=== PATIENT | female | born 1940 | race Caucasian/White ===

== ENCOUNTER 2023-02-19 14:44 | Observation (INO) | payer OTHER, MEDICARE ==
[2023-02-19 15:58] LABS: Absolute Lymphocytes (CBC) 1.6 K/uL (0.7-4.9); Lymphocytes % 19.9 % (15.3-44.8); MCV 72.5 fL (80-100); MPV 7.5 fL (7.6-11.3); RBC Red Blood Cell Count 4.27 M/uL (3.86-4.86)
[2023-02-19] MEDS ORDERED: NA CHLORIDE 0.9% 1,000 ML ONE (16:03)
[2023-02-19 16:26] LABS: Albumin 3.8 g/dL (3.4-5.0); Bilirubin Total 0.4 mg/dL (0.2-1.0); Potassium 3.9 mEq/L (3.5-5.1); Protein, Total 7.4 g/dL (6.4-8.2); Troponin High Sensitivity 6.5 pg/mL (<58.9)
[2023-02-19 16:28] LABS: Thyroid Stimulating Hormone 5.39 uIU/mL (0.358-3.740)
[2023-02-19] MEDS ORDERED: methocarbamoL 500 MG TAB ONE (16:29)
--- NOTE | 2023-02-19 17:17 | RAD REPORT ---
EXAM DESCRIPTION: CT - Head Brain Wo Cont - 02/19/2023 5:11 pm CLINICAL HISTORY: WEAKNESS Headache, drowsiness COMPARISON: No comparisons TECHNIQUE: All CT scans are performed using dose optimization technique as appropriate and may inclu de automated exposure control or mA/KV adjustment according to patient size. FINDINGS: No intracranial hemorrhage, hydrocephalus or extra-axial fluid collection.Mild generalized brain atrophy.No areas of brain edema or evidence of midline shift. The paranasal sinuses and mastoids are clear. The calvarium is intact. IMPRESSION: No acute intracranial abnormality.
--- NOTE | 2023-02-19 17:20 | RAD REPORT ---
EXAM DESCRIPTION: CT - Angio Aorta For Dissection - 02/19/2023 5:11 pm CLINICAL HISTORY: Chest pain radiating to the back. AAA back pain COMPARISON: No comparisons TECHNIQUE: CT angiography of the aorta was performed with MIPs. All CT scans are performed using dose optimization technique as appropriate and may include automated exposure control or mA/KV adjustment according to patient size. FINDINGS: A left aortic arch is present with normal branching pattern of the great vessels.No acute aortic finding is seen such as aneurysm, penetrating ulcer or dissection. Abdominal aortic endograft is present. The celiac axis, SMA, JANICE and renal arteries are patent. No evidence of pulmonary embolism. Diffuse COPD. The liver demonstrates no focal mass or biliary dilatation.The spleen, pancreas, adrenal glands and k idneys are within normal limits for arterial phase imaging. No bowel obstruction, free fluid or abscess.No pathologic enlarged lymphadenopathy identified. Moderate lumbar degenerative changes. IMPRESSION: No acute aortic finding is demonstrated. Abdominal aortic endograft is in place without unexpected finding.
[2023-02-19] MEDS ORDERED: FENTANYL CITR 100 MCG/2 ML ONE ×2 (17:52→20:00)
[2023-02-19 18:04] LABS: Specific Gravity 1.018 (1.005-1.030); Urine Bacteria <20 /HPF (<20); Urine Bilirubin NEGATIVE (Negative); Urine Blood Negative (Negative); Urine Clarity Clear (Clear); Urine Color Light-Yellow (Yellow); Urine Glucose NEGATIVE (Negative); Urine Protein NEGATIVE (Negative); Urine RBC <5 /HPF (None Seen); Urine Urobilinogen Normal (Normal); Urine pH 7.5 (5.0-7.0)
--- NOTE | 2023-02-19 18:25 | EDPHYS ---
Physician Documentation [facility] Name: Fariha Stevenson Age: 82 yrs Sex: Female : 1940 Arrival Date: 02/19/2023 Time: 14:44 Bed 8 Private MD: ED Physician Jaime Alonzo HPI: 02/19 16:18 This 82 yrs old Female presents to ER via Carried with complaints of Near Syncope. rt 16:18 Patient presents to the ED with a near syncopal event. The patient states that she had rt a brief episode where she was not able to move with her arms or her legs. She states that she felt dizzy at that time. The patient states that she has been able to move her arms legs little bit better but still not back to baseline. She does report she has been having back pain, described as a spasm in the past 2 weeks, still present today. She states muscle relaxers are not helping. The patient does have a history of a stented AAA as well as stent to carotid arteries. Denies other acute complaints at this time. Symptoms are moderate in severity, no other aggravating or alleviating factors.. Historical: - Allergies: 14:48 PENICILLINS; hb - Home Meds: 14:48 diclofenac oral [Active]; Baclofen Oral [Active]; gabapentin oral [Active]; hb atorvastatin oral [Active]; amlodipine 2.5 mg tablet daily [Active]; Dicyclomine Oral [Active]; - PMHx: 14:48 Hypertension; Vertigo; AAA; Carotid aneurysm; hb - Immunization history:: Adult Immunizations unknown. - Social history:: Smoking status: Patient denies any tobacco usage or history of. ROS: 16:20 Constitutional: Negative for fever, chills, and weight loss, Cardiovascular: Negative rt for chest pain, palpitations, and edema, Respiratory: Negative for shortness of breath, cough, wheezing, and pleuritic chest pain, Abdomen/GI: Negative for abdominal pain, nausea, vomiting, diarrhea, and constipation, MS/Extremity: Negative for injury and deformity, Psych: Negative for depression, anxiety, suicide ideation, homicidal ideation, and hallucinations. 16:20 Back: Positive for pain at rest, Negative for injury or acute deformity. 16:20 Neuro: Positive for near syncope, weakness. Exam: 16:20 Constitutional: This is a well developed, well nourished patient who is awake, alert, rt and in no acute distress. Head/Face: Normocephalic, atraumatic. Chest/axilla: Normal chest wall appearance and motion. Nontender with no deformity. No lesions are appreciated. Cardiovascular: Regular rate and rhythm with a normal S1 and S2. No gallops, murmurs, or rubs. Normal PMI, no JVD. No pulse deficits. Respiratory: Lungs have equal breath sounds bilaterally, clear to auscultation and percussion. No rales, rhonchi or wheezes noted. No increased work of breathing, no retractions or nasal flaring. Abdomen/GI: Soft, non-tender, with normal bowel sounds. No distension or tympany. No guarding or rebound. No evidence of tenderness throughout. Skin: Warm, dry with normal turgor. Normal color with no rashes, no lesions, and no evidence of cellulitis. MS/ Extremity: Pulses equal, no cyanosis. Neurovascular intact. Full, normal range of motion. Psych: Awake, alert, with orientation to person, place and time. Behavior, mood, and affect are within normal limits. 16:20 ECG was reviewed by the Attending Physician. 16:20 Neuro: global weakness noted, no lateralizing deficits. No sensory deficits, speech normal, cranial nerves II through intact.. Vital Signs: 14:46 BP 126 / 56; Pulse 63; Resp 16; Temp 98.3; Pulse Ox 100% on R/A; Weight 46.72 kg; hb Height 5 ft. 1 in. ; Pain 5/10; 15:30 BP 120 / 84; Pulse 63; Resp 18; Pulse Ox 98% on R/A; ko1 16:00 BP 141 / 68; Pulse 60; Resp 16; Pulse Ox 100% ; ko1 16:30 BP 134 / 57; Pulse 58; Resp 16; Pulse Ox 100% ; ko1 18:15 BP 152 / 74; Pulse 71; Resp 15; Pulse Ox 95% ; jl7 18:42 BP 146 / 58; Pulse 65; Resp 16; Pulse Ox 99% ; ko1 19:24 BP 136 / 64; Pulse 68; Resp 19; Pulse Ox 96% on R/A; kd3 20:20 BP 122 / 58; Pulse 56; Resp 18; Pulse Ox 94% on R/A; kd3 14:46 Body Mass Index 19.46 (46.72 kg, 154.94 cm) hb 14:46 Pain Scale: Adult hb MDM: 15:21 Patient medically screened. rt 19:13 Differential Diagnosis: CVA, AAA, electrolyte disturbance, sepsis. Data reviewed: vital rt signs, nurses notes, lab test result(s), EKG, radiologic studies. Consideration of Admission/Observation Patient was admitted/placed on observation. Management of patient was discussed with the following: Primary Care Provider: Ice aspirin administration, will admit patient for further evaluation.. I considered the following discharge prescriptions or medication management in the emergency department Medications were administered in the Emergency Department. See MAR. Independent interpretation of the following test(s) in the Emergency Department CT Scan: My interpretation is No hemorrhage seen on my interpretation of the CT scan images. Care significantly affected by the following chronic conditions: Hypertension, AAA. Counseling: I had a detailed discussion with the patient and/or guardian regarding: the historical points, exam findings, and any diagnostic results supporting the discharge/admit diagnosis, lab results, radiology results, the need for further work-up and treatment in the hospital. 02/19 15:38 Order name: CBC with Diff; Complete Time: 16:39 rt 02/19 15:38 Order name: CMP; Complete Time: 17:17 rt 02/19 15:38 Order name: Magnesium; Complete Time: 17:17 rt 02/19 15:38 Order name: TSH; Complete Time: 17:17 rt 02/19 15:38 Order name: UAM; Complete Time: 18:10 rt 02/19 15:38 Order name: Troponin High Sensitivity; Complete Time: 17:17 rt 02/19 15:38 Order name: CPK; Complete Time: 17:17 rt 02/19 16:30 Order name: T4 Free; Complete Time: 17:17 EDMS 02/19 15:38 Order name: CT Aorta for Dissection; Complete Time: 17:26 rt 02/19 15:38 Order name: CT Head Brain wo Cont; Complete Time: 17:26 rt 02/19 15:38 Order name: EKG; Complete Time: 15:38 rt 02/19 15:38 Order name: EKG - Nurse/Tech; Complete Time: 16:10 rt EC:20 Rate is 56 beats/min. Rhythm is regular, Sinus bradycardia with No ectopy. QRS [place] is rt Normal. [place] interval is normal. QRS interval is normal. QT interval is normal. No Q waves. Clinical impression: NSR w/ Non-specific ST/T Changes. Administered Medications: 16:10 Drug: NS 0.9% IV 1000 ml Route: IV; Rate: 1 bolus; Site: left antecubital; ko1 20:38 Follow up: IV Status: Completed infusion kd3 16:23 Drug: Methocarbamol PO 500 mg Route: PO; ko1 20:38 Follow up: Response: No adverse reaction kd3 17:06 CANCELLED (med unavailablee): Orphenadrine IM 60 mg IM once bp 17:59 Drug: fentaNYL (PF) IVP 50 mcg Route: IVP; Site: right antecubital; jl7 20:38 Follow up: Response: No adverse reaction kd3 19:56 Drug: fentaNYL (PF) IVP 50 mcg Route: IVP; Site: left antecubital; kd3 20:38 Follow up: Response: No adverse reaction kd3 Disposition Summary: 02/19/23 18:24 Hospitalization Ordered Hospitalization Status: Observation rt Provider: Ed Clemente rt Location: Telemetry/MedSurg (observation) rt Condition: Stable rt Problem: new rt Symptoms: have improved rt Bed/Room Type: Standard rt Room Assignment: 207(02/19/23 19:51) cg Diagnosis - Weakness rt Forms: - Medication Reconciliation Form rt - SBAR form rt Signatures: Dispatcher [employer] Cris Rivero RN RN Haylie Bonds RN RN Elizabeth Barclay RN RN jl7 Melissa Krishnamurthy RN RN kd3 Nikki Trotter RN RN ko1 Jaime Alonzo MD MD rt Bill Park RN bp Corrections: (The following items were deleted from the chart) 14:50 14:48 PMHx: Carotid aneurysn; hb hb 17:06 15:54 Orphenadrine IM 60 mg IM once ordered. rt bp 19:51 18:24 rt cg
--- NOTE | 2023-02-19 18:25 | ER ---
Nurse's Notes [facility] Name: Fariha Stevenson Age: 82 yrs Sex: Female : 1940 Arrival Date: 02/19/2023 Time: 14:44 Bed 8 Private MD: Diagnosis: Weakness Presentation: 02/19 14:46 Chief complaint: Near syncopal episode while walking to the bathroom this afternoon, hb followed by severe generalized weakness + loss of bowels x 1. Coronavirus screen: At this time, the client does not indicate any symptoms associated with coronavirus-19. Ebola Screen: No symptoms or risks identified at this time. Initial Sepsis Screen: Does the patient meet any 2 criteria? No. Patient's initial sepsis screen is negative. Does the patient have a suspected source of infection? No. Patient's initial sepsis screen is negative. Risk Assessment: Do you want to hurt yourself or someone else? Patient reports no desire to harm self or others. Onset of symptoms was February 19, 2023. 14:46 Method Of Arrival: Carried hb 14:46 Acuity: FELICITY 3 hb Historical: - Allergies: 14:48 PENICILLINS; hb - Home Meds: 14:48 diclofenac oral [Active]; Baclofen Oral [Active]; gabapentin oral [Active]; hb atorvastatin oral [Active]; amlodipine 2.5 mg tablet daily [Active]; Dicyclomine Oral [Active]; - PMHx: 14:48 Hypertension; Vertigo; AAA; Carotid aneurysm; hb - Immunization history:: Adult Immunizations unknown. - Social history:: Smoking status: Patient denies any tobacco usage or history of. Screenin:30 [facility] ED Fall Risk Assessment (Adult) History of falling in the last 3 months, ko1 including since admission Yes- single mechanical fall (1 pt) Confusion or Disorientation No (0 pts) Intoxicated or Sedated No (0 pts) Impaired Gait No (0 pts) Mobility Assist Device Used No (0 pt) Altered Elimination No (0 pt) Score/Fall Risk Level 0 - 2 = Low Risk Oriented to surroundings, Maintained a safe environment, Educated pt \T\ family on fall prevention, incl call for assistance when getting out of bed, Assessed \T\ reinforced patient's understanding of fall precautions, Provided non-skid footwear, Hourly rounding (assess needs \T\ fall precautionary measures) done, Used ambulatory aids as needed (educated on \T\ assisted with), Used gait belt as appropriate. Abuse screen: Denies threats or abuse. Denies injuries from another. Nutritional screening: On. Nutritional screening: No deficits noted. Tuberculosis screening: No symptoms or risk factors identified. Assessment: 16:00 General: Appears in no apparent distress. uncomfortable, Behavior is calm, cooperative, ko1 appropriate for age. Pain: Complains of pain in back. Neuro: Level of Consciousness is awake, alert, obeys commands, Oriented to person, place, time, situation, Appropriate for age Email Marketer are weak bilaterally Moves all extremities. Speech is normal, Facial symmetry appears normal, Reports a syncopal episode weakness. Cardiovascular: No deficits noted. Respiratory: No deficits noted. GI: No deficits noted. : No deficits noted. EENT: No deficits noted. Derm: No deficits noted. Musculoskeletal: Reports weakness in generalized. 17:55 Reassessment: Pt returned from restroom via wheelchair, urine sample provided, on jl7 attempting to stand up from wheelchair pt jerked and reported a back spasm. Pt reports medication has not helped and is requesting additional medication and another pillow. Dr. Melendez notified and ordered 50 mcg Fentanyl IVP. Pt provided with another pillow and medicated as ordered. 19:23 General: Appears in no apparent distress. uncomfortable, Behavior is calm, cooperative. kd3 Pain: Complains of pain in back. Neuro: Level of Consciousness is awake, alert, obeys commands, Oriented to person, place, time, situation, Email Marketer are weak bilaterally Moves all extremities. Cardiovascular: Patient's skin is warm and dry. Respiratory: Airway is patent Trachea midline Respiratory effort is even, unlabored, Respiratory pattern is regular, symmetrical. Vital Signs: 14:46 BP 126 / 56; Pulse 63; Resp 16; Temp 98.3; Pulse Ox 100% on R/A; Weight 46.72 kg; hb Height 5 ft. 1 in. ; Pain 5/10; 15:30 BP 120 / 84; Pulse 63; Resp 18; Pulse Ox 98% on R/A; ko1 16:00 BP 141 / 68; Pulse 60; Resp 16; Pulse Ox 100% ; ko1 16:30 BP 134 / 57; Pulse 58; Resp 16; Pulse Ox 100% ; ko1 18:15 BP 152 / 74; Pulse 71; Resp 15; Pulse Ox 95% ; jl7 18:42 BP 146 / 58; Pulse 65; Resp 16; Pulse Ox 99% ; ko1 19:24 BP 136 / 64; Pulse 68; Resp 19; Pulse Ox 96% on R/A; kd3 20:20 BP 122 / 58; Pulse 56; Resp 18; Pulse Ox 94% on R/A; kd3 14:46 Body Mass Index 19.46 (46.72 kg, 154.94 cm) hb 14:46 Pain Scale: Adult hb ED Course: 14:46 Patient arrived in ED. hb 14:48 Triage completed. hb 14:50 Arm band placed on. hb 15:02 Bill Park, RN is Primary Nurse. bp 15:21 Jaime Alonzo MD is Attending Physician. rt 15:50 Inserted saline lock: 22 gauge in left antecubital area, using aseptic technique. Blood ko1 collected. Patient maintains SpO2 saturation greater than 95% on room air. 15:51 CPK Sent. ko1 15:51 Troponin High Sensitivity Sent. ko1 15:51 TSH Sent. ko1 15:51 Magnesium Sent. ko1 15:51 CMP Sent. ko1 15:51 CBC with Diff Sent. ko1 16:30 Patient has correct armband on for positive identification. Bed in low position. Call ko1 light in reach. Side rails up X2. Adult w/ patient. Pulse ox on. NIBP on. Door closed. Noise minimized. Warm blanket given. Pillow given. 17:13 CT Aorta for Dissection In Process Unspecified. EDMS 17:13 CT Head Brain wo Cont In Process Unspecified. EDMS 18:24 Ed Clemente MD is Hospitalizing Provider. rt 19:25 Primary Nurse role handed off by Bill Park, ANGIE kd3 19:25 Melissa Krishnamurthy, ANGIE is Primary Nurse. kd3 20:37 No provider procedures requiring assistance completed. Patient admitted, IV remains in kd3 place. Administered Medications: 16:10 Drug: NS 0.9% IV 1000 ml Route: IV; Rate: 1 bolus; Site: left antecubital; ko1 20:38 Follow up: IV Status: Completed infusion kd3 16:23 Drug: Methocarbamol PO 500 mg Route: PO; ko1 20:38 Follow up: Response: No adverse reaction kd3 17:06 CANCELLED (med unavailablee): Orphenadrine IM 60 mg IM once bp 17:59 Drug: fentaNYL (PF) IVP 50 mcg Route: IVP; Site: right antecubital; jl7 20:38 Follow up: Response: No adverse reaction kd3 19:56 Drug: fentaNYL (PF) IVP 50 mcg Route: IVP; Site: left antecubital; kd3 20:38 Follow up: Response: No adverse reaction kd3 Medication: 16:30 VIS not applicable for this client. ko1 Outcome: 18:24 Decision to Hospitalize by Provider. rt 20:38 Admitted to Med/surg room 207. kd3 20:38 Condition: stable 20:38 Condition: stable 20:38 Discharge instructions given to patient. 20:46 Patient left the ED. kd3 Signatures: Dispatcher [employer] EDMS Haylie Bonds RN RN hb Leal, Jahala, RN RN jl7 Bill Park RN RN bp Doucette, Kyli, RN RN kd3 Nikki Trotter RN RN ko1 Jaime Alonzo MD MD rt Corrections: (The following items were deleted from the chart) 14:50 14:48 PMHx: Carotid aneurysn; hb hb
[2023-02-19] MEDS ORDERED: GABAPENTIN 300 MG CAP PO ONE (20:00)
[2023-02-19] MEDS ORDERED: GABAPENTIN 300 MG CAP ONE (20:19)
[2023-02-19 21:26] VITALS: BMI 19.3
[2023-02-19 21:35] VITALS: O2SAT 94
[2023-02-19 21:51] LABS: Specific Gravity > 1.030 (1.005-1.030); Urine Bilirubin NEGATIVE (Negative); Urine Blood Negative (Negative); Urine Clarity Clear (Clear); Urine Color Colorless (Yellow); Urine Glucose NEGATIVE (Negative); Urine Protein NEGATIVE (Negative); Urine Urobilinogen Normal (Normal)
[2023-02-20] MEDS ORDERED: HYDROCODONE/APAP 5/325 MG TAB PO PRN (02:47)
[2023-02-20 03:26] LABS: Absolute Lymphocytes (CBC) 1.9 K/uL (0.7-4.9); Hematocrit 28.5 % (36.0-45.0); MCV 72.9 fL (80-100); RBC Red Blood Cell Count 3.91 M/uL (3.86-4.86)
[2023-02-20 03:38] LABS: Albumin 3.2 g/dL (3.4-5.0); Bilirubin Total 0.3 mg/dL (0.2-1.0); Potassium 3.6 mEq/L (3.5-5.1); Protein, Total 6.6 g/dL (6.4-8.2)
[2023-02-20] MEDS ORDERED: PNEUMOCOCCAL VACCINE 0.5 ML IMVAC ONE (08:00)
[2023-02-20 09:19] VITALS: BP 137/63; TEMP 98.2
--- NOTE | 2023-02-20 11:44 | RAD REPORT ---
EXAM DESCRIPTION: RAD - Thoracic Spine Ap/Lat - 02/20/2023 11:27 am CLINICAL HISTORY: back pain COMPARISON: Thoracic Spine Ap/Lat dated 11/19/2022; Angio Aorta For Dissection dated 02/19/2023 FINDINGS/IMPRESSION: No acute fracture. No malalignment. Scattered mild disc height loss and endplat e spurring. Osteopenia. Lower thoracic compression deformities are unchanged
--- NOTE | 2023-02-20 11:46 | RAD REPORT ---
EXAM DESCRIPTION: RAD - Lumbar Spine 3 Views - 02/20/2023 11:27 am CLINICAL HISTORY: back pain COMPARISON: Lumbar Spine 3 Views dated 11/19/2022 FINDINGS: No acute fracture. Superior endplate deformity at L1 and L4 is unchanged. No significant m alalignment. Disc height loss that is moderate to severe L5-S1 and aqin-pj-kvdudqhp at the other leve ls. Aorto bi-iliac stent graft. Surgical clips in right upper quadrant. Trace retrolisthesis of L1 wi th respect to L2 and L2 with respect to L3. IMPRESSION: No acute osseous abnormality involving the lumbar spine. Remote compression deformities.
--- NOTE | 2023-02-21 14:46 | EKG ---
Test Date: 2023-02-19 Test Time: 16:02:48 Interlacer: BRADLEY MEASUREMENT RESULTS: Intervals: Rate: 56 CT: 148 QRSD: 58 QT: 422 QTc: 407 [place]: P: 93 CT: 148 QRS: 79 T: 179 INTERPRETIVE STATEMENTS: Sinus bradycardia ST & T wave abnormality, consider inferior ischemia Abnormal ECG No previous ECG available for comparison Electronically Signed On 02-21-23 14:44:05 CDT by Erick Dunaway
--- NOTE | 2023-02-23 06:15 | SS ---
Date of Discharge: 02/20/2023 Chief Complaint: Fainting. History Of Present Illness: This is an 82-year-old female patient who lives at home, was doing fine in her normal usual state of health until yesterday when she went to the bathroom, and after she used bathroom and she got up, she walked 2-3 steps, and near the bathroom door, she actually felt dizzy a nd ended up falling down on the floor and had a brief episode of fainting type of feeling. Subsequen tly, she was brought into emergency room, and after she was evaluated, she was admitted [facility]. Overnight, in the hospital, her condition has remained stable. This morning when I saw her, her cxzexbif-ek-bhy and daughter were present with her at bedside. She denies any nausea, vomiting, jason rrhea. No blood in stool, blood in urine. No chest pain. No shortness of breath. She has been hav ing some pain along her mid and lower back on the left side lately that has remained unchanged. The patient's blood pressure checked by family was 103/72 after she had this syncopal episode when she wa s still lying down on the ground. Allergies: TO PENICILLIN CAUSING NAUSEA AND VOMITING. Medications: Amlodipine 2.5 mg daily in morning, aspirin 81 mg, atorvastatin 10 mg daily at bedtime, dicyclomine 20 mg 3 times a day, gabapentin 300 mg at bedtime, pantoprazole 40 mg daily. Review of Systems: Musculoskeletal: As mentioned above. All other systems reviewed and negative. Social History: Positive for smoking. Use of alcohol negative. Family History: Father and had pneumonia. Mother , had diabetes; and sister has [place], stroke , and diabetes. Past Surgical History: Significant for tonsillectomy; ear surgery; abdominal aortic aneurysm repair with endograft placement, April 24, 2021; right leg stent placement, January 28, 2022; left leg stent pl acement, January 28, 2022; cholecystectomy; appendectomy; left shoulder surgery; bilateral carpal tunne l surgery. Past Medical History: Significant for anemia, osteoarthritis at multiple sites, gastroesophageal ref lux disease, hypertension, hyperlipidemia, abdominal aortic aneurysm, and peripheral vascular disease . Physical Examination: Vital Signs: This morning, temperature 98.2, pulse 66, respiratory rate 20, blood pressure 137/63, o xygen saturation 94%. Height 5 feet 1 inch, weight 102 pounds. General: Awake, alert, oriented, not in distress. HEENT: Head atraumatic, normocephalic. Conjunctivae nonerythematous. Sclerae white. Mouth, no thr ush or edema noted. Ears/Nose, no mass, lesion, discharge noted. Neck: Supple. No JVD, lymph nodes, bruit, thyromegaly noted. Lungs: Bilateral good equal air entry. Clear to auscultation. No rhonchi. No rales. Heart: Normal heart sounds, no murmur or gallop. Abdomen: Soft, bowel sounds normal. No guarding, rigidity, tenderness, mass, hepatosplenomegaly, dis tention, or bruit noted. Extremities: No leg edema. No calf tenderness. Skin: No rash, ulcer, cellulitis. Lymphatics: No lymph node enlargement in neck, supraclavicular, infraclavicular region. Neuro: No focal neurological deficit. Chest: Unremarkable. External Genitalia: Deferred. Rectal: Deferred. Laboratory Data: Yesterday, white count 7.8, hemoglobin 9.6, platelets 330. Today, white count 6.7, hemoglobin 9.1, and platelets 277. Yesterday, sodium 136, potassium 3.9, chloride 107, bicarb 26, B UN 10, creatinine 0.82, glucose 101. Liver function tests unremarkable. Troponin 6.5. This morning , sodium 140, potassium 3.6, chloride 112, bicarb 25, BUN 10, creatinine 0.66, glucose 104. Urinalys is negative. CT angiogram of aorta shows no evidence of any acute aortic findings. Abdominal aortic endograft is in place without any unexpected findings. CAT scan of the brain was negative for any acute intracran ial changes. Hospital Course: After the patient was evaluated in emergency room, she was admitted to hospital. H er condition overnight has remained stable. I have ordered x-ray of the thoracic and lumbar spine, w hich has shown no evidence of any acute fracture and has shown changes of osteoarthritis. The patien t has appointment to see Pain Management physician later part of this month and she was encouraged to keep that appointment. I strongly believe that her syncopal episode was very likely due to orthosta tic hypotension and I have discussed these details with the patient and her family members who were a t bedside. I have discussed details regarding when to take amlodipine depending on the blood pressur e with family members today. Discharge Medications And Instructions: 1.Continue all prior home medication except following changes. Check your blood pressure before jonathan ing amlodipine, and if your systolic blood pressure is less than 140, then do not take dose of amlodi pine. 2.Apply grqf-xkv-kzmeedo lidocaine patch to back area every morning, take it off at bedtime. 3.Follow up at my office next week. Final Diagnoses: 1.Syncope. 2.Anemia, unspecified. 3.Hypertension. 4.Hyperlipidemia. 5.Abdominal aortic aneurysm. 6.Peripheral vascular disease. 7.Osteoarthritis, multiple sites. 8.Gastroesophageal reflux disease. KELLY/MODL Voice ID: [id number] Report ID: [id number]
== END 2023-02-20 11:34 | disposition home or self-care (01) ==
LOC: ER 14:44 → ERHOLD 18:31 → 2ND 19:55
PROVIDERS: ADMIT Internal Medicine; ATTEND Internal Medicine
DX: R55 Syncope and collapse (principal); E78.5 Hyperlipidemia, unspecified; I10 Essential (primary) hypertension; R53.1 Weakness; D64.9 Anemia, unspecified; Z23 Encounter for immunization; Z88.0 Allergy status to penicillin
CPT/HCPCS: 93005; 85025 ×2; 81001; 36415; 83735; 82550; 84443; 81003; 84484; 84439; 80053 ×2; 70450; 71275; 74175; 72100; 72070; 99285; Q9967; J3010 ×2; J7030; G0378 ×3

== ENCOUNTER 2024-07-24 07:00 | Day surgery (SDC) | payer OTHER, MEDICARE ==
--- NOTE | 2024-07-19 10:11 | RAD REPORT ---
EXAMINATION: ONE VIEW CHEST XR CLINICAL INDICATION: pre procedure TECHNIQUE: Frontal chest projection is submitted. Examination is limited by patient positioning and t echnique. COMPARISON: No prior exam. FINDINGS: The lungs are diffusely emphysematous but grossly clear. The heart is upper limit of normal in size. No displaced fractures identified. IMPRESSION: COPD without an acute process suspected.
[2024-07-19 10:19] LABS: Absolute Basophils 0.1 K/uL (0-0.5); Absolute Eosinophils 0.1 K/uL (0-0.5); Absolute Lymphocytes (CBC) 1.9 K/uL (0.7-4.9); Absolute Monocytes 0.9 K/uL (0.1-1.3); Absolute Neutrophil 4.5 K/uL (1.8-8.0); Basophils % 1.5 % (0-1.3); Eosinophils % 0.8 % (0-4.4); Hematocrit 40.3 % (36.0-45.0); Hemoglobin 13.2 g/dL (12.0-15.0); Lymphocytes % 25.6 % (15.3-44.8); MCH 28.9 pg (27.0-35.0); MCHC 32.7 g/dL (32.0-36.0); MCV 88.5 fL (80-100); MPV 7.6 fL (7.6-11.3); Monocytes % 11.7 % (3.3-12.3); Neutrophils % 60.4 % (41.7-73.7); Platelets 327 thou/uL (152-406); RBC Red Blood Cell Count 4.55 M/uL (3.86-4.86); Red Cell Distribution Width 15.9 % (12.1-15.2)
[2024-07-19 10:31] LABS: Anion Gap 7.7 mEq/L (5.0-15.0); Potassium 3.7 mEq/L (3.5-5.1)
[2024-07-19 10:42] LABS: PT Prothrombin Time 10.6 SECONDS (9.4-12.5); PTT, Activated Partial Thromb 26.6 SECONDS (24.3-36.9); Protime INR 0.94
--- NOTE | 2024-07-20 16:55 | EKG ---
Test Date: 2024-07-19 Test Time: 09:35:25 Product Line Manager: WILL MEASUREMENT RESULTS: Intervals: Rate: 58 MT: 150 QRSD: 64 QT: 400 QTc: 392 [place]: P: 86 MT: 150 QRS: 78 T: 79 INTERPRETIVE STATEMENTS: Sinus bradycardia Otherwise normal ECG Compared to ECG 02/19/2023 16:02:48 ST (T wave) deviation no longer present Possible ischemia no longer present Electronically Signed On 07-20-24 16:51:07 CDT by Erick Dunaway
[2024-07-24] MEDS ORDERED: FENTANYL CITR 100 MCG/2 ML ONE (07:14)
[2024-07-24] MEDS ORDERED: MIDAZOLAM HCL 2 MG/2 ML INJ ONE (07:15)
[2024-07-24] MEDS ORDERED: NA CHLORIDE 0.9% 500 ML ONE (07:18)
[2024-07-24 07:31] VITALS: TEMP 97.6
[2024-07-24] MEDS ORDERED: HEPARIN 5000 UNIT/ML 1 ML VIAL ONE (07:37)
[2024-07-24] MEDS ORDERED: HEPA 1000U/500MLS 2,000 UNIT/1,000 ML BAG IV ONE (07:37)
[2024-07-24] MEDS ORDERED: LIDOCAINE 1% 20 ML MDV ONE (07:37)
[2024-07-24] MEDS ORDERED: NITROGLYCERIN/D5W 50 MG/250 ML BTL IV ONE (07:37)
[2024-07-24] MEDS ORDERED: ATROPINE SULF 1 MG/10 ML SYR IV ONE (08:15)
[2024-07-24 11:17] VITALS: BP 144/48; O2SAT 96
--- NOTE | 2024-07-27 13:38 | OP ---
Date of Procedure: 07/24/2024 Surgeon: Rosalino Pulido Procedure Performed: Selective bilateral carotid angiogram. Indication For Procedure: Abnormal carotid duplex. Complications: None. Estimated Blood Loss: Less than 50 cc. Access: Right common femoral artery closed by manual compression. Sedation Time: 20 minutes with 1 of Versed and 25 of fentanyl. Description Of Procedure: After risks, and benefits, and alternatives were explained to the patient, patient agreed to proceed with procedure and signed informed consent. The patient was brought back to the rags laborer, prepped and draped in a sterile fashion. Time-out was performed. Sedation was admi nistered. Next, right common femoral artery access was obtained, ultrasound-guided technique, a 4-Fr ench sheath was inserted without any difficulty. Then, we advanced a Corona 1 catheter over the J-wire to the aortic root. That catheter was used for selective angiogram on the right and left and the ca rotid artery. At the end of procedure, catheter was removed over a J-wire. Sheath was removed. Man ual compression was applied. Hemostasis was achieved and patient was moved back to Recovery in stabl e condition. Findings: 1.Right common carotid artery patent. 2.Right internal carotid artery with a proximal 80% disease and mild luminal irregularities. 3.Right external carotid artery proximal 50% disease. 4.Left common carotid artery patent. 5.Left internal carotid artery with proximal 20% disease. 6.Left external carotid artery with a proximal 60% disease. Assessment And Plan: Significant right internal carotid artery disease. The plan will be to consult Vascular Surgery to evaluate for carotid endarterectomy as an outpatient. PAULA Voice ID: [id number] Report ID: [id number]
== END 2024-07-24 11:44 | disposition home or self-care (01) ==
LOC: CCL 07:00
PROVIDERS: ATTEND Internal Medicine Interventional Cardiology
DX: I65.23 Occlusion and stenosis of bilateral carotid arteries (principal); I70.223 Atherosclerosis of native arteries of extremities with rest pain, bilateral legs; I71.43 Infrarenal abdominal aortic aneurysm, without rupture; E78.2 Mixed hyperlipidemia; Z88.0 Allergy status to penicillin; I10 Essential (primary) hypertension; Z79.899 Other long term (current) drug therapy
CPT/HCPCS: 93005; 85025; 80048; 36415; 85610; 85730; 71045; 36222; 76937; C1893; J2001; J2250; J3010; J7040; 99152; 99153; J0461; J1644